=== PATIENT | male | born 1985 | race Asian ===

== ENCOUNTER → 2024-08-29 13:44 | Outpatient (BNVA) | payer OTHER, SELFPAY | PROVIDERS: Visit Provider Physician Assistant Medical | DX: Z77.21 Contact with and (suspected) exposure to potentially hazardous body fluids (principal); Z02.79 Encounter for issue of other medical certificate | CPT/HCPCS: 82150; 82565; 84450; 84460; 85025; 99203 ==

== ENCOUNTER → 2024-09-20 13:34 | Outpatient (BNVA) | payer OTHER, SELFPAY | DX: Z77.21 Contact with and (suspected) exposure to potentially hazardous body fluids (principal) | CPT/HCPCS: 84450; 84460; 87389 ==

== ENCOUNTER → 2024-11-10 13:24 | Outpatient (BNVA) | payer OTHER, SELFPAY | DX: Z77.21 Contact with and (suspected) exposure to potentially hazardous body fluids (principal) | CPT/HCPCS: 84450; 84460; 86803; 87389; 99211 ==

== ENCOUNTER → 2025-02-08 08:18 | Outpatient (BNVA) | payer OTHER, SELFPAY | DX: Z77.21 Contact with and (suspected) exposure to potentially hazardous body fluids (principal); Z02.79 Encounter for issue of other medical certificate | CPT/HCPCS: 84450; 84460; 86803; 87389; 99211 ==